=== PATIENT | female | born 1980 | race Caucasian/White ===

== ENCOUNTER → 2018-01-30 | Outpatient (CLI) | payer OTHER ==
--- NOTE | 2018-01-30 12:32 | RAD ---
INDICATION: Thyroid fullness. TECHNIQUE: Thyroid ultrasound was performed. Comparison report is from September 13, 2011, those images could not be obtained. FINDINGS: Right thyroid lobe measures 6.2 x 1.3 x 1.2 cm and the left 3.1 x 1.1 x 0.7 cm. The isthmus measures 0.3 cm. Thyroid is homogeneous without increase or decrease in color flow and without discrete nodule. IMPRESSION: Normal thyroid ultrasound. Electronically signed by: Jose Steinberg MD (01/30/2018 12:29 PM) [facility]
== END | disposition home or self-care (01) ==
LOC: US 09:02
PROVIDERS: ATTEND Physician Assistant Medical
DX: E07.89 Other specified disorders of thyroid (principal)
CPT/HCPCS: 76536

== ENCOUNTER → 2019-09-30 | Outpatient (CLI) | payer OTHER ==
[2019-09-30 12:23] LABS: ALBUMIN 3.8 g/dL (3.4-5.0); ALBUMIN/GLOBULIN RATIO 1.1 (1.0-1.7); ALK PHOS 41 U/L (46-116); ALT (SGPT) 19 U/L (14-59); ANION GAP 10 (6-14); AST (SGOT) 19 U/L (15-37); BLOOD UREA NITROGEN 15 mg/dL (7-20); BUN/CREATININE RATIO 15 (6-20); CALCIUM 9.1 mg/dL (8.5-10.1); CARBON DIOXIDE 27 mmol/L (21-32); CHLORIDE 105 mmol/L (98-107); GFR 62.4; GLUCOSE 91 mg/dL (70-99); POTASSIUM 4.2 mmol/L (3.5-5.1); SODIUM 142 mmol/L (136-145); TOTAL BILIRUBIN 0.4 mg/dL (0.2-1.0); TOTAL PROTEIN 7.3 g/dL (6.4-8.2)
[2019-09-30 12:27] LABS: BASO # 0.1 x10^3/uL (0.0-0.2); BASO % 1 % (0-3); EOS # 0.2 x10^3/uL (0.0-0.7); EOS % 3 % (0-3); HEMATOCRIT 45.3 % (36.0-47.0); HEMOGLOBIN 15.1 g/dL (12.0-15.5); LYMPH # 1.2 x10^3/uL (1.0-4.8); LYMPH % 18 % (24-48); MEAN CORPUSCULAR HEMOGLOBIN 31 pg (25-35); MEAN CORPUSCULAR HGB CONC 33 g/dL (31-37); MEAN CORPUSCULAR VOLUME 92 fL (79-100); MONO # 0.5 x10^3/uL (0.0-1.1); MONO % 7 % (0-9); NEUT # 4.8 x10^3uL (1.8-7.7); NEUT % 72 % (31-73); PLATELET COUNT 178 x10^3/uL (140-400); RED BLOOD COUNT 4.94 x10^6/uL (3.50-5.40); RED CELL DISTRIBUTION WIDTH 13.5 % (11.5-14.5); WHITE BLOOD COUNT 6.7 x10^3/uL (4.0-11.0)
--- NOTE | 2019-09-30 12:45 | RAD ---
AP and Lateral Views of the Chest 09/30/2019 12:00 AM Indication: Shortness of breath, chest pain. Comparison: none Findings: There is no focal consolidation or infiltrate identified. The cardiomediastinal silhouette is within normal limits. There is no evidence of pneumothorax or pleural effusion. No acute osseous abnormalities are identified. Impression: No evidence of acute cardiopulmonary process. Electronically signed by: Kar Mcclendon MD (09/30/2019 12:42 PM) [id number]
[2019-10-01 19:58] LABS: FREE T4 1.04 ng/dL (0.76-1.46); THYROID STIM HORMONE (TSH) 1.497 uIU/mL (0.358-3.740)
== END | disposition home or self-care (01) ==
LOC: PMG 11:01
PROVIDERS: ATTEND Registered Nurse
DX: R07.89 Other chest pain (principal); R00.2 Palpitations; R06.02 Shortness of breath; N64.4 Mastodynia
CPT/HCPCS: 36415; 71046; 80053; 82553; 83735; 84439; 84443; 84480; 84484; 85025; 85379

== ENCOUNTER → 2019-10-08 | Outpatient (CLI) | payer OTHER ==
--- NOTE | 2019-10-08 16:21 | RAD ---
EXAMINATION: MAMMO [facility] DIAG BILAT History: Breast pain at the right lateral aspect for 2 months. Comparison: None. This exam is the baseline. Technique: Bilateral digital diagnostic mammogram views were obtained. CAD was utilized. 3-D tomosynthesis images were acquired. Findings: Breast Tissue Density B : There are scattered areas of fibroglandular density. There are no dominant masses, suspicious microcalcifications, or architectural distortion. IMPRESSION: No mammographic evidence of malignancy. Recommend routine screening. BI-RADS category 1: Negative. The images were reviewed with computer aided detection. Patient information is entered into the reminder system with a target due date for the next screening mammogram. Mammography is the most sensitive method for finding small breast cancers, but it does not detect them all and is not a substitute for careful clinical examination. A negative mammogram does not negate a clinically suspicious finding and should not result in delay in biopsying a clinically suspicious abnormality. "Our facility is accredited by the [employer] Mammography Program." Electronically signed by: Roni Poe MD (10/08/2019 4:18 PM) [email or web address]
== END ==
LOC: MAMMO 10:28
PROVIDERS: ATTEND Registered Nurse
DX: N64.4 Mastodynia (principal)
CPT/HCPCS: 77066; G0279; 77062